=== PATIENT | male | born 1975 | race African-American/Black ===

== ENCOUNTER 2023-03-13 09:48 | Emergency (ER) | payer SELFPAY ==
[2023-03-13] MEDS ORDERED: Labetalol 100 MG/20 ML MDV IVPUSH ONE ×2 (10:00→13:19)
[2023-03-13] MEDS ORDERED: Iopamidol 755 Mg/ML 100 ML Bottle IVPUSH ONE (10:06)
[2023-03-13] MEDS ORDERED: Sodium Chloride 0.9% 100 ML IV SCH (10:15)
[2023-03-13 10:22] LABS: BASOPHILS ABSOLUTE AUTO 0.02 K/mm3 (0.01-0.08); BASOPHILS PERCENT AUTO 0.3 % (0.1-1.2); EOSINOPHILS ABSOLUTE AUTO 0.03 K/mm3 (0.04-0.54); EOSINOPHILS PERCENT AUTO 0.5 (0.8-7.0); HEMOGLOBIN 14.6 gm/dl (13.7-17.5); IMMATURE GRAN ABSOLUTE AUTO 0.01 K/mm3 (0.00-0.10); IMMATURE GRAN PERCENT AUTO 0.2 % (<=1.0); LYMPHOCYTES ABSOLUTE AUTO 1.08 K/mm3 (1.32-3.57); LYMPHOCYTES PERCENT AUTO 17.5 % (21.8-53.1); MEAN CORPUSCULAR HGB CONC 33.2 g/dl (32.2-35.5); MEAN CORPUSCULAR VOLUME 93.4 fl (79.0-92.2); MEAN PLATELET VOLUME 11.2 fl (9.4-12.3); MONOCYTES ABSOLUTE AUTO 0.37 K/mm3 (0.30-0.82); NEUTROPHILS ABSOLUTE AUTO 4.66 K/mm3 (1.78-5.38); NEUTROPHILS PERCENT AUTO 75.5 % (34.0-67.9); PLATELET COUNT,PLT 211 K/mm3 (163-337); RED BLOOD CELL COUNT 4.71 M/mm3 (4.63-6.08); WHITE BLOOD CELL COUNT,WBC 6.17 K/mm3 (4.23-9.07)
[2023-03-13 10:42] LABS: INR 1.14; PROTHROMBIN TIME 12.1 SECONDS (9.7-12.0)
[2023-03-13 10:44] LABS: PTT,PARTIAL THROMBOPLSTIN TIME 21.7 SECONDS (21.7-31.4)
[2023-03-13 10:53] LABS: A/G RATIO 0.9 (1-2); ALBUMIN 3.3 g/dl (3.4-5.0); ANION GAP 16.7 (5-15); BILIRUBIN TOTAL 2.4 mg/dL (0.2-1.0); CALCIUM 8.8 mg/dL (8.5-10.1); CREATININE 1.3 mg/dL (0.7-1.3); EST CRCL DRUG DOSING (CG) 72.53 mL/min; POTASSIUM,K 2.7 mEq/L (3.5-5.1); PROTEIN TOTAL,TP 6.9 g/dl (6.4-8.2)
[2023-03-13] MEDS: Potassium Chloride 10 MEQ in Premix Bag 1 BAG IV SCH ×3 (12:09→13:51)
[2023-03-13] MEDS ORDERED: Heparin Sodium 5,000 Units/ML Vial IVPUSH ONE (13:03)
[2023-03-13] MEDS ORDERED: Potassium Chloride 20 MEQ Tab.ER PO ONE (13:03)
[2023-03-13] MEDS ORDERED: Heparin Sodium/D5W 25,000 UNITS/500 ML BAG IV SCH (13:15)
[2023-03-13] MEDS ORDERED: Potassium Chloride 10 MEQ in Premix Bag 1 BAG IV SCH (13:15)
== END 2023-03-13 14:03 ==
LOC: JD.ED 09:48
DX: I26.99 Other pulmonary embolism without acute cor pulmonale (principal); E87.6 Hypokalemia; I51.7 Cardiomegaly; I10 Essential (primary) hypertension; R94.31 Abnormal electrocardiogram [ECG] [EKG]
CPT/HCPCS: 36415; 71275; 80053; 84484; 85025; 85610; 85730; 93005; 96365; 96366; 96368; 96375; 96376; 99285; A9270; J1644; J3480; J3490; Q9967; 93010